=== PATIENT | female | born 1965 | race Two or more races ===

== ENCOUNTER → 2024-11-23 | Outpatient (CLI) | payer MEDICAID ==
[2024-11-23 12:24] LABS: Bilirubin, Total 0.4 mg/dL (0.2-1.0); Total Protein 7.5 g/dL (5.7-8.2)
[2024-11-23 12:37] LABS: Albumin 4.9 g/dL (3.2-4.8)
[2024-11-23 13:07] LABS: Bilirubin, Direct 0.1 mg/dL (<0.3)
== END | disposition home or self-care (01) ==
LOC: LAB 11:10
PROVIDERS: ATTEND Podiatrist
DX: B35.1 Tinea unguium (principal)
CPT/HCPCS: 36415; 80076